=== PATIENT | female | born 1995 | race Caucasian/White ===

== ENCOUNTER 2024-07-19 13:00 | Emergency (ER) | payer OTHER, SELFPAY ==
[2024-07-19 13:28] VITALS: BP 110/78; PULSE 95; TEMP 37.1; O2SAT 99; BMI 14.8
--- NOTE | 2024-07-19 14:50 | ED_ITS ---
HPI - Dental/Oral General Chief complaint: Dental/Oral Stated complaint: DENTAL PAIN Time Seen by Provider: 07/19/24 13:15 Source: patient Mode of arrival: walk-in History of Present Illness HPI Narrative: cc = left upper rear dental pain and facial swelling Patient says that her wisdom teeth are growing and causing problems with her molars. She knew that she had an area of enamel loss in the left upper rear molar due to the wisdom tooth -however she did not have dental insurance for a long time and was holding off on surgery. Now she has dental insurance and was planning on saving money and accruing time off work in order to get the wisdom teeth removed. However the last 2 days she has developed increasing pain in the left upper rear molar and jaw and now this morning has noticed redness and swelling of the left cheek. The pain is subsequently increased. No fever or vomiting. Related Data Previous Rx's ?Medication ?Instructions ?Recorded clindamycin HCl 150 mg capsule 450 mg (3 x 150 mg) PO TID 7 days 07/19/24 #63 caps Allergies Allergy/AdvReac Type Severity Reaction Status Date / Time codeine Allergy Severe Unknown Verified 07/19/24 13:32 PFSH PFS Social History Little interest or pleasure in doing things: not at all Feeling down, depressed, or hopeless: not at all Exam Narrative Exam Narrative: General: The patient is comfortable, alert and oriented x3, well appearing, non toxic in no apparent distress. Head: Atraumatic and normocephalic. Eyes: Normal conjunctiva ENT: The oropharynx is normal. No pharyngeal erythema, uvular edema, tonsillar exudates, asymmetry or trismus. Uvula is midline. Mouth is normal to inspection with the exception of a pain on percussion of the tooth #15 and irruption of tooth #16 with associated swelling of the gum and tenderness. There is slight left facial asymmetry/swelling but no definitive abscess formation. Floor of the mouth is soft. No tenderness in the submental or submandibular space. No tongue elevation or deviation. The patient has no evidence of periapical abscess, gingivitis or other acute pathology. Airway is patent. Neck: The neck demonstrates normal range of motion. No meningeals signs are present. No stridor. No masses or lymphadenopathy noted. Respiratory: No acute distress, lungs are clear to auscultation, no wheezing, rhonchi, or rales noted. No stridor or retractions are noted. Cardiovascular: Regular rate and rhythm Skin: The skin exam shows no evidence of rashes Neuro: Alert and oriented x4, normal speech Lymphatic: No cervical lymphadenopathy Constitutional Vital Signs, click to edit/add: Last Vital Signs Temp 98.7 F 07/19/24 13:28 Pulse 95 H 07/19/24 13:28 Resp 16 07/19/24 13:28 BP 110/78 07/19/24 13:28 Pulse Ox 99 07/19/24 13:28 O2 Del Method Room Air 07/19/24 13:28 Course Vital Signs Vital signs: Vital Signs Temperature 98.7 F 07/19/24 13:28 Pulse Rate 95 H 07/19/24 13:28 Respiratory Rate 16 07/19/24 13:28 Blood Pressure 110/78 07/19/24 13:28 Pulse Oximetry 99 07/19/24 13:28 Oxygen Delivery Method Room Air 07/19/24 13:28 Temperature 98.7 F 07/19/24 13:28 Pulse Rate 95 H 07/19/24 13:28 Respiratory Rate 16 07/19/24 13:28 Blood Pressure 110/78 07/19/24 13:28 Pulse Oximetry 99 07/19/24 13:28 Oxygen Delivery Method Room Air 07/19/24 13:28 MDM - Dental/Oral MDM Narrative Medical decision making narrative: Patient found to have eruption of her left upper rear wisdom tooth which is causing pain and some enamel loss of tooth #15. Now she has developed facial asymmetry associated with a likely odontogenic infection. She will be prescribed clindamycin to take at home and will be given topical dental paste in the emergency department applied to the area to assist with pain control. She was also instructed to take Tylenol and Motrin for the pain although she will likely need to avoid Motrin as she gets closer to date of dental surgery. She is to reach out to her dentist, which she plans to do tomorrow Discharge Plan Discharge Chief Complaint: Dental/Oral Clinical Impression: Odontogenic infection of jaw, Toothache Patient Disposition: Home, Self-Care Time of Disposition Decision: 14:54 Prescriptions / Home Meds: New clindamycin HCl 150 mg capsule 450 mg PO TID 7 Days Qty: 63 0RF Print Language: Occitan Instructions: Toothache (ED) Additional Instructions: Call dentist office tomorrow for follow-up Referrals: Humphrey Escobar MD [Primary Care Provider] - 1 week
[2024-07-19] MEDS: BENZOCAINE 30 ML, lidocaine HCL 15 ML MM (15:15)
== END 2024-07-19 15:19 | disposition home or self-care (01) ==
PROVIDERS: Emergency Provider Emergency Medicine; PCP Family Medicine
DX: M27.2 Inflammatory conditions of jaws (principal); K08.89 Other specified disorders of teeth and supporting structures; R68.84 Jaw pain
CPT/HCPCS: 99283